=== PATIENT | female | born 1955 | race Caucasian/White ===

== ENCOUNTER 2017-09-23 09:24 | Emergency (ER) | payer OTHER ==
[~2017-09-23] VITALS: Ht 162.6 cm; Wt 104.3 kg
[2017-09-23] MEDS ORDERED: NEURONTIN300 MG PO (12:21)
[2017-09-23] MEDS ORDERED: DIAZEPAM10 MG PO (12:21)
[2017-09-23] MEDS ORDERED: MEDROLPACK PO (12:21)
[2017-09-23] MEDS ORDERED: DICLOFENAC SODI50 MG PO (12:21)
== END 2017-09-23 13:16 | disposition home or self-care (01) ==
LOC: ER 09:24
DX: M54.41 Lumbago with sciatica, right side (principal)

== ENCOUNTER 2023-07-23 06:32 | Day surgery (SDC) | payer OTHER ==
[2023-07-16 11:02] LABS: HEMATOCRIT 42.9 % (36.0-45.00); MEAN CELL VOLUME 89.3 fL (80.00-100.00); MEAN CORPUSCULAR HEMOGLOBIN 29.2 pg (27.00-32.0); MEAN CORPUSCULAR HGB CONC 32.7 g/dl (32.0-36.0); PLATELET COUNT 315 K/uL (150-450); RED CELL DISTRIBUTION WIDTH 13.6 % (11.5-14.5)
[2023-07-16 11:05] LABS: PH,URINE 5.5 (5.0-8.0); URINE APPEARANCE Cloudy; URINE BILIRRUBIN Negative (NEGATIVE); URINE BLOOD Negative; URINE COLOR Yellow; URINE GLUCOSE Negative (NEGATIVE); URINE LEUKOCYTE Trace; URINE NITRATE Negative; URINE PROTEIN Trace (NEGATIVE); URINE UROBILINOGEN 0.2 E.U./dl
[2023-07-16 11:09] LABS: URINE EPITHELIAL CELLS 178.2 uL (0.0-38.8); URINE RBC 8.7 uL (0.0-20.8); URINE WBC 94.9 uL (0.0-23.2)
[2023-07-16 11:27] LABS: INR 0.99; PARTIAL THROMBOPLASTIN TIME 26.8 SECONDS (22.0-34.0); PROTHROMBIN TIME 10.4 SECONDS (9.0-11.5)
[2023-07-16 11:33] LABS: ALBUMIN 3.4 gm/dL (3.4-5.0); BILIRUBIN TOTAL 0.61 mg/dL (0.3-1.2); CALCIUM 8.6 mg/dL (8.5-10.1); CREATININE SERUM 0.67 mg/dL (0.55-1.02); GFR 88.06; GLOBULINA 3.1 G/DL (2.4-3.5); POTASSIUM 4.06 mEq/L (3.5-5.1); TOTAL PROTEIN 6.5 gm/dL (6.4-8.2)
[~2023-07-23 06:32] MED LIST: DIAZEPAM10 MG PO; DICLOFENAC SODI50 MG PO; FOLIC ACID0.4 MG; HORIZANT300 MG; LIPITOR; MEDROLPACK PO; METROTREXATE; NEURONTIN300 MG PO
== END 2023-07-23 13:55 | disposition home or self-care (01) ==
LOC: CIR.AMB 06:32
PROVIDERS: ATTEND Orthopaedic Surgery
DX: M75.121 Complete rotator cuff tear or rupture of right shoulder, not specified as traumatic (principal); M75.21 Bicipital tendinitis, right shoulder; M24.111 Other articular cartilage disorders, right shoulder; Z20.822 Contact with and (suspected) exposure to COVID-19